=== PATIENT | male | born 1940 | race Caucasian/White ===

== ENCOUNTER 2017-08-31 09:30 | Day surgery (SDC) | payer OTHER ==
[2017-08-27 15:12] VITALS: BMI 25.0
[2017-08-31 09:53] VITALS: TEMP 98.7
[2017-08-31] MEDS ORDERED: PROPOFOL 20 ML ONE ×3 (11:27)
[2017-08-31 11:46] VITALS: BP 130/76; PULSE 61
== END 2017-08-31 11:50 | disposition home or self-care (01) ==
LOC: FASU-ENDO 09:30
PROVIDERS: ATTEND Internal Medicine Gastroenterology
PROC: 0DJD8ZZ Inspection of Lower Intestinal Tract, Via Natural or Artificial Opening Endoscopic (ICD-10-PCS; principal; 2017-08-31 10:56)
DX: Z86.010 Personal history of colon polyps (principal); K57.30 Diverticulosis of large intestine without perforation or abscess without bleeding

== ENCOUNTER 2022-03-08 13:42 | Emergency (ER) | payer OTHER, MEDICARE ==
[2022-03-08 13:57] VITALS: BP 161/93; PULSE 91; TEMP 98.8; BMI 26.0
[2022-03-08] MEDS ORDERED: BEBTELOVIMAB (EUA) 175 MG/2 ML VIAL IVPUSH ONE (15:30)
== END 2022-03-08 17:44 | disposition home or self-care (01) ==
LOC: JCOVINFU 13:42
DX: U07.1 COVID-19 (principal)
CPT/HCPCS: 99284-25; M0222; Q0222

== ENCOUNTER 2022-07-16 08:35 | Emergency (ER) | payer OTHER, MEDICARE ==
[2022-07-16] MEDS ORDERED: ACETAMINOPHEN 325 MG TABLET (FP) ONE (09:08)
[2022-07-16] MEDS ORDERED: ACETAMINOPHEN 325 MG TABLET (FP) PO ONE (09:08)
[2022-07-16 09:36] VITALS: BP 213/100; PULSE 113; RESP 18; TEMP 98; BMI 25.7
== END 2022-07-16 09:29 | disposition home or self-care (01) ==
LOC: FER 08:35
DX: R33.9 Retention of urine, unspecified (principal)
CPT/HCPCS: 99283-25

== ENCOUNTER 2022-12-23 08:29 | Day surgery (SDC) | payer OTHER, MEDICARE ==
[2022-12-18 11:03] VITALS: BMI 25.8
[~2022-12-23 08:29] MED LIST: LACTATED RINGERS SOLUTION 1,000 ML IV SCH; ONDANSETRON 4 MG/2 ML VIAL IVPUSH PRN
[2022-12-23] MEDS ORDERED: ceFAZolin SODIUM 1 GM VIAL ONE ×2 (08:34→11:06)
[2022-12-23] MEDS ORDERED: ERYTHROMYCIN 0.5% OPHTHALMIC OINTMENT 3.5 GM TUBE ONE (08:34)
[2022-12-23] MEDS ORDERED: TETRACAINE 0.5% OPHTH SOLN 2 ML BOTTLE ONE (08:35)
[2022-12-23] MEDS ORDERED: BUPIVACAINE HCL 50 ML ONE (08:35)
[2022-12-23] MEDS ORDERED: LIDOCAINE 1%-EPI 1:100,000 30 ML MDV IJ ONE (08:35)
[2022-12-23] MEDS ORDERED: POVIDONE-IODINE 5% OPHTHALMIC PREP 30 ML SOLUTION ONE (08:36)
[2022-12-23] MEDS ORDERED: PROPOFOL 20 ML ONE ×2 (10:50→11:40)
[2022-12-23] MEDS ORDERED: MIDAZOLAM HCL 2 MG/2 ML SINGLE DOSE VIAL ONE (10:50)
[2022-12-23] MEDS ORDERED: DEXAMETHASONE SOD PHOSPHATE 4 MG/1 ML VIAL ONE (11:40)
[2022-12-23] MEDS ORDERED: ONDANSETRON 4 MG/2 ML VIAL ONE (11:40)
[2022-12-23 14:50] VITALS: RESP 16
[2022-12-23 15:04] VITALS: BP 124/74; PULSE 72; TEMP 97.6
== END 2022-12-23 14:00 | disposition home or self-care (01) ==
LOC: FASU 08:29
PROVIDERS: ATTEND Ophthalmology
PROC: 08URX7Z Supplement Left Lower Eyelid with Autologous Tissue Substitute, External Approach (ICD-10-PCS; 2022-12-23)
PROC: 08BR0ZZ Excision of Left Lower Eyelid, Open Approach (ICD-10-PCS; principal; 2022-12-23 11:20)
DX: C44.1192 Basal cell carcinoma of skin of left lower eyelid, including canthus (principal)
CPT/HCPCS: 94760

== ENCOUNTER 2023-08-24 05:01 | Day surgery (SDC) | payer OTHER, MEDICARE ==
[2023-08-20 09:52] VITALS: BMI 26.8
[~2023-08-24 05:01] MED LIST changes: +BUPIVACAINE HCL/PF 0.5% (5MG/ML) 10 ML VIAL IJ ONE; -LACTATED RINGERS SOLUTION 1,000 ML IV SCH; -ONDANSETRON 4 MG/2 ML VIAL IVPUSH PRN
[2023-08-24] MEDS ORDERED: BUPIVACAINE HCL/PF 0.25% (2.5MG/ML) 10 ML VIAL ONE (09:53)
[2023-08-24] MEDS ORDERED: MIDAZOLAM HCL 2 MG/2 ML SINGLE DOSE VIAL ONE ×2 (10:02→11:54)
[2023-08-24] MEDS ORDERED: PROPOFOL 20 ML ONE (10:02)
[2023-08-24] MEDS ORDERED: FENTANYL CITRATE/PF 50 MCG/ML VIAL ONE ×9 (10:02→15:38)
[2023-08-24] MEDS ORDERED: ROCURONIUM BROMIDE 50 MG/5 ML SYRINGE ONE ×2 (10:02→12:45)
[2023-08-24] MEDS ORDERED: LIDOCAINE HCL/PF 2% SDV 5ML VIAL ONE (12:05)
[2023-08-24] MEDS ORDERED: ceFAZolin SODIUM 1 GM VIAL ONE (12:13)
[2023-08-24] MEDS ORDERED: ceFAZolin SODIUM 1 GM VIAL IVPB ONE (12:15)
[2023-08-24] MEDS ORDERED: BUPIVACAINE HCL/PF 0.5% (5MG/ML) 10 ML VIAL IJ ONE (12:34)
[2023-08-24] MEDS ORDERED: BUPIVACAINE HCL/PF 0.25% (2.5MG/ML) 10 ML VIAL IJ ONE (12:34)
[2023-08-24] MEDS ORDERED: GLYCOPYRROLATE 0.2 MG/1 ML VIAL ONE (12:36)
[2023-08-24] MEDS ORDERED: SEVOFLURANE 250 ML BTL ONE (12:42)
[2023-08-24] MEDS ORDERED: SUGAMMADEX SODIUM 200 MG/2 ML VIAL ONE (12:45)
[2023-08-24] MEDS ORDERED: KETOROLAC TROMETHAMINE 30 MG/1 ML VIAL ONE (13:55)
[2023-08-24] MEDS ORDERED: ONDANSETRON 4 MG/2 ML VIAL ONE (14:27)
[2023-08-24] MEDS ORDERED: PROMETHAZINE HCL 25 MG/1 ML VIAL IVPB PRN (14:47)
[2023-08-24] MEDS ORDERED: oxyCODONE HCL 5 MG TABLET PO PRN ×2 (14:47)
[2023-08-24] MEDS ORDERED: ACETAMINOPHEN 1000 MG/100 ML BAG IVPB ONE (14:47)
[2023-08-24] MEDS ORDERED: ONDANSETRON 4 MG/2 ML VIAL IVPUSH PRN (14:47)
[2023-08-24] MEDS ORDERED: LACTATED RINGERS SOLUTION 1,000 ML IV SCH (15:00)
[2023-08-24 17:33] VITALS: RESP 18
[2023-08-24 17:40] VITALS: BP 120/76; PULSE 88; TEMP 98.4
== END 2023-08-24 18:00 | disposition home or self-care (01) ==
LOC: JASU-SURG 05:01
PROVIDERS: ATTEND Surgery
PROC: 8E0W4CZ Robotic Assisted Procedure of Trunk Region, Percutaneous Endoscopic Approach (ICD-10-PCS; 2023-08-24)
PROC: 0YU54JZ Supplement Right Inguinal Region with Synthetic Substitute, Percutaneous Endoscopic Approach (ICD-10-PCS; principal; 2023-08-24 11:45)
DX: K40.90 Unilateral inguinal hernia, without obstruction or gangrene, not specified as recurrent (principal)
CPT/HCPCS: 49650; S2900; 88304-TC; 94760; C1781

== ENCOUNTER 2023-12-28 07:29 | Day surgery (SDC) | payer OTHER, MEDICARE ==
[2023-12-24 14:58] VITALS: BMI 26.5
[2023-12-28] MEDS ORDERED: PROPOFOL 160 ML ONE (07:38)
[2023-12-28 09:16] VITALS: PULSE 74; RESP 16; TEMP 97.5
[2023-12-28 09:51] VITALS: BP 141/89
== END 2023-12-28 09:53 | disposition home or self-care (01) ==
LOC: FASU-ENDO 07:29
PROVIDERS: ATTEND Internal Medicine Gastroenterology
PROC: 0DBH8ZX Excision of Cecum, Via Natural or Artificial Opening Endoscopic, Diagnostic (ICD-10-PCS; 2023-12-28)
PROC: 0DBN8ZX Excision of Sigmoid Colon, Via Natural or Artificial Opening Endoscopic, Diagnostic (ICD-10-PCS; principal; 2023-12-28 08:39)
DX: Z12.11 Encounter for screening for malignant neoplasm of colon (principal); D12.0 Benign neoplasm of cecum; K63.5 Polyp of colon; K57.30 Diverticulosis of large intestine without perforation or abscess without bleeding; Z86.010 Personal history of colon polyps
CPT/HCPCS: 88305-TC